=== PATIENT | male | born 1950 | race Caucasian/White ===

== ENCOUNTER → 2019-11-08 | Outpatient (CLI) | payer MEDICARE, OTHER ==
[~2019-11-08] MED LIST: ALLOPURINOL 30300 M2 PO; CARVEDILOL25 MG PO; CIALIS5 MG; FLOMAX0.4 MG PO; INDOMETHACIN 5050 M1 PO; OMEPRAZOLE 20 M20 MG PO; OXAZEPAM30 MG PO; RESTASIS1 EACH OPHTHALMIC; SIMVASTATIN40 MG PO; TESTOSTERO200 MG/1 M IM; TRAZODONE HCL50 MG PO; ZOFRAN ODT4 MG SUBLING
== END ==
LOC: M.LAB 09:36
PROVIDERS: ATTEND Internal Medicine Gastroenterology
DX: Z01.812 Encounter for preprocedural laboratory examination (principal); Z11.59 Encounter for screening for other viral diseases